=== PATIENT | female | born 1990 | race Asian ===

== ENCOUNTER 2017-10-30 08:36 | Emergency (ER) | payer BC ==
[~2017-10-30] VITALS: Ht 170.2 cm; Wt 78.0 kg
[2017-10-30 08:44] VITALS: Ht 170.2 cm; Wt 78.0 kg
[2017-10-30 10:44] VITALS: BP 132/84
== END 2017-10-30 10:44 | disposition home or self-care (01) ==
LOC: ED 08:36
DX: N93.9 Abnormal uterine and vaginal bleeding, unspecified (principal)